=== PATIENT | male | born 1995 | race Caucasian/White ===

== ENCOUNTER 2017-03-21 20:01 | Emergency (ER) | payer OTHER ==
[2017-03-21 20:12] VITALS: BP 119/66; PULSE 54; TEMP 98.1; BMI 22.3
[2017-03-21] MEDS ORDERED: IBUPROFEN 600 MG TABLET (FP) PO ONE ×2 (20:50→21:01)
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
== END 2017-03-21 21:05 | disposition home or self-care (01) ==
LOC: JERFT 20:01 → SUPCPDRO 20:01 → JERFT 21:05
DX: S13.4XXA Sprain of ligaments of cervical spine, initial encounter (principal); S39.012A Strain of muscle, fascia and tendon of lower back, initial encounter; S16.1XXA Strain of muscle, fascia and tendon at neck level, initial encounter; V43.52XA Car driver injured in collision with other type car in traffic accident, initial encounter; Y92.414 Local residential or business street as the place of occurrence of the external cause; Y93.89 Activity, other specified; Y99.8 Other external cause status
CPT/HCPCS: 99281-25

== ENCOUNTER 2019-12-09 16:23 | Emergency (ER) | payer OTHER ==
[2019-12-09 16:36] VITALS: BP 123/76; PULSE 96; TEMP 101; BMI 20.9
[2019-12-09] MEDS ORDERED: ACETAMINOPHEN 500 MG TABLET (FP) PO ONE (16:36)
--- NOTE | 2019-12-09 16:37 | PDOC ---
Rapid Medical Evaluation Time Seen by Provider: 12/09/19 16:33 Medical Evaluation: Allergies Allergy/AdvReac Type Severity Reaction Status Date / Time No Known Allergies Allergy Verified 12/09/19 16:33 12/09/19 16:34 CC: flu-like symptoms Pt is a 23 y/o male with a cold and flu-like symptoms for 3 days. No documented fevers. + cough with phlegm. Took Advil at 12p. Brief exam: Non-toxic appearing, no respiratory distress Orders: Tylenol To ED for further evaluation 12/09/19 16:36 Discharge Disposition - Diagnosis Flu-like symptoms - Referrals - Patient Instructions - Post Discharge Activity
[2019-12-09] MEDS ORDERED: ACETAMINOPHEN 500 MG TABLET (FP) ONE (16:59)
--- NOTE | 2019-12-09 17:02 | PDOC ---
History of Present Illness - General Chief Complaint: Cold Symptoms Stated Complaint: COLD SYMPTOMS Time Seen by Provider: 12/09/19 16:33 History Source: Patient Exam Limitations: No Limitations Past History - Past Medical History Allergies/Adverse Reactions: Allergies Allergy/AdvReac Type Severity Reaction Status Date / Time No Known Allergies Allergy Verified 12/09/19 16:33 Home Medications: Ambulatory Orders NK [No Known Home Medication] 12/09/19 COPD: No - Surgical History Appendectomy: Yes - Immunization History Immunization Up to Date: Yes - Psycho Social/Smoking Cessation Hx Smoking Status: No Smoking History: Never smoked Have you smoked in the past 12 months: No Number of Cigarettes Smoked Daily: 0 Hx Alcohol Use: No Drug/Substance Use Hx: No Substance Use Type: None *Physical Exam - Vital Signs Last Vital Signs Temp Pulse Resp BP Pulse Ox 101 F H 96 H 18 123/76 99 12/09/19 16:34 12/09/19 16:34 12/09/19 16:34 12/09/19 16:34 12/09/19 16:34 - Physical Exam General Appearance: No: Apparent Distress HEENT: positive: Normal ENT Inspection, Pharynx Normal Respiratory/Chest: positive: Lungs Clear, Normal Breath Sounds. negative: Respiratory Distress Cardiovascular: positive: Regular Rhythm, Regular Rate, S1, S2. negative: Murmur Gastrointestinal/Abdominal: positive: Normal Bowel Sounds, Soft. negative: Tender, Distended, Guarding, Rebound Integumentary: positive: Normal Color Neurologic: positive: Alert Medical Decision Making - Medical Decision Making 23 y/o M with no sig pmh presents with subjective fever, cough, chills, body aches, congestion, sore throat x 3 days. Last took Advil around 12 PM. Denies sob, cp, abd pain, n/v/d, urinary sxs. Likely viral syndrome Patient appears well Given Tylenol (patient is past 48 hr window frame to start flu treatment, so testing deferred) 12/09/19 17:03 Discharge - Discharge Information Problems reviewed: Yes Clinical Impression/Diagnosis: Viral URI Condition: Stable Disposition: HOME - Admission No - Additional Discharge Information Prescription Drug Monitoring Program (I-STOP) results: I-STOP not reviewed - Follow up/Referral - Patient Discharge Instructions Patient Printed Discharge Instructions: DI for Viral Upper Respiratory Infection -- Adult Additional Instructions: Viral URI thank you for choosing [facility], [place]. It was a pleasure taking care of you. You have viral infection Alternate between Tylenol every 4 and Motrin every 6 hours as needed for fever Recommend rest and hydration Follow-up with your doctor in 2 days Return to the Emergency Department if your symptoms worsen or persist or have other concerning symptoms. - Post Discharge Activity
[2019-12-17] MEDS ORDERED: METHOCARBAMOL 500 MG TABLET ONE (00:11)
== END 2019-12-09 17:12 | disposition home or self-care (01) ==
LOC: JERFT 16:23
DX: J06.9 Acute upper respiratory infection, unspecified (principal); B97.89 Other viral agents as the cause of diseases classified elsewhere
CPT/HCPCS: 99281-25

== ENCOUNTER 2023-11-14 06:15 | Day surgery (SDC) | payer OTHER ==
[2023-11-05 16:52] VITALS: BMI 22.3
[2023-11-14] MEDS ORDERED: BUPIVACAINE HCL/PF 0.25% (2.5MG/ML) 10 ML VIAL ONE (07:16)
[2023-11-14] MEDS ORDERED: LIDOCAINE HCL 2% (20ML MULTI-DOSE VIAL) ONE (07:16)
[2023-11-14] MEDS ORDERED: LIDOCAINE HCL 1%, 10 MG/ML (20ML VIAL) ONE (07:16)
[2023-11-14] MEDS ORDERED: LIDOCAINE 1%/EPI 1:100000 (50 ML MULTI DOSE VIAL) ONE (07:17)
[2023-11-14] MEDS ORDERED: MIDAZOLAM HCL 2 MG/2 ML SINGLE DOSE VIAL ONE (07:28)
[2023-11-14] MEDS ORDERED: SUCCINYLCHOLINE CHLORIDE 200 MG/10 ML SYRINGE ONE (07:28)
[2023-11-14] MEDS ORDERED: PROPOFOL 40 ML ONE (07:28)
[2023-11-14] MEDS ORDERED: PROPOFOL 20 ML ONE (07:43)
[2023-11-14] MEDS ORDERED: ONDANSETRON 4 MG/2 ML VIAL IVPUSH PRN (08:40)
[2023-11-14] MEDS ORDERED: oxyCODONE HCL 5 MG TABLET PO PRN (08:40)
[2023-11-14] MEDS ORDERED: LACTATED RINGERS SOLUTION 1,000 ML IV SCH (08:45)
[2023-11-14] MEDS ORDERED: FENTANYL CITRATE/PF 50 MCG/ML VIAL ONE (09:07)
[2023-11-14 09:54] VITALS: TEMP 97.6
[2023-11-14 10:13] VITALS: BP 110/66; PULSE 65; RESP 18
== END 2023-11-14 10:12 | disposition home or self-care (01) ==
LOC: FASU 06:15
PROVIDERS: ATTEND Orthopaedic Surgery Sports Medicine
PROC: 0SBC0ZZ Excision of Right Knee Joint, Open Approach (ICD-10-PCS; principal; 2023-11-14 07:59)
DX: M67.461 Ganglion, right knee (principal)
CPT/HCPCS: 88304-TC; 94760